=== PATIENT | female | born 1945 | race Caucasian/White ===

== ENCOUNTER → 2016-12-12 | Outpatient (CLI) | payer MEDICARE, OTHER ==
[~2016-12-12] MED LIST: ACTOS15 MG PO; ADVAIR 250/28 DISKU1 IH; ADVAIR IH; ALLEGRA180 MG PO; ALLEGRA60 M1 PO; ARICEPT10 MG PO; ASPIRIN 81M81 MG/TA2 PO; ASPIRIN E.C. 8181 MG PO; BISOPROLOL5 MG PO; BUPROBAN150 MG PO; BUPROPION HCL150 MG PO; CALCIUM + D 6001 TA1 PO; CALCIUM 600 W/V1 TAB PO; CALCIUM 600MG+D1 TAB PO; CARAFATE 1GM1 G PO; CLARITIN 1010 MG/TAB PO; CRESTOR10 MG PO; CYMBALTA 60MG60 MG PO; CYMBALTA30 MG PO; DESYREL 50MG50 MG PO; FAMOTIDINE40 MG PO; FISH OIL1 IU PO; FLONASE NASAL S16 GM NS; FLUTICAS P0.05 MG/AC NS; FORTAMET500 MG PO; GLIPIZIDE5 MG PO; GLUCOPHAGE1000 MG PO; IRON325 M2 PO; LEVOTHROID0.1 MG PO; LEVOTHROID0.112 MG PO; LIP PO; LIPITOR 40MG TA40 MG PO; LIPITOR80 MG PO; LOPRESSOR 225 MG/TAB PO; LUMIGAN 5 ML5 M1 OU; METFORMIN500 MG PO; METOPROLOL SUCC25 M1 PO; NATURE'S BLEN2000 IU PO; NITROSTAT0.4 MG SL; PEPCID 20MG TAB20 MG PO; PLAVIX 75MG TAB75 MG PO; PRAVASTATIN40 MG PO; RITE AID BIO2500 MCG PO; RT ADVAIR 228 DISKUS IH; SINGULAIR10 MG PO; ST. JOSEPH81 M2 PO; SUPER EPA 1201200 MG PO; SYNTHROID0.1 MG/TAB PO; TRAVATAN Z 2.52.5 ML OU; VASOTEC 2.2.5 MG/TAB PO; VITAMIN B11000 MCG/M IM; VITAMIN D31000 IU PO; VTAMINC250TA PO; ZOLPIDEM5 MG PO; ZYBAN150 MG PO; ZYRTEC10 MG PO
== END ==
LOC: MC.RAD 08:00
DX: Z12.31 Encounter for screening mammogram for malignant neoplasm of breast (principal); R92.1 Mammographic calcification found on diagnostic imaging of breast

== ENCOUNTER → 2016-12-26 | Outpatient (CLI) | payer MEDICARE, OTHER | LOC: COL.RAD 08:46 | PROVIDERS: Internal Medicine | DX: Z01.812 Encounter for preprocedural laboratory examination (principal); I71.4 Abdominal aortic aneurysm, without rupture; J84.10 Pulmonary fibrosis, unspecified; I25.10 Atherosclerotic heart disease of native coronary artery without angina pectoris; I51.7 Cardiomegaly | CPT/HCPCS: Q9967 ==

== ENCOUNTER → 2017-03-08 | Outpatient (CLI) | payer MEDICARE, OTHER | LOC: COL.RAD 07:45 | DX: S22.080A Wedge compression fracture of T11-T12 vertebra, initial encounter for closed fracture (principal) ==

== ENCOUNTER 2017-03-13 08:22 | Outpatient (CLI) | payer MEDICARE, OTHER ==
[~2017-03-13] VITALS: Ht 167.6 cm; Wt 81.0 kg
[2017-03-13] VITALS (8 sets, daily range): BP systolic 116–168; BP diastolic 71–102; PULSE 49–56; TEMP 96.7–97.9
[~2017-03-13 08:22] MED LIST changes: -CALCIUM 600MG+D1 TAB PO; -CYMBALTA 60MG60 MG PO; -DESYREL 50MG50 MG PO; -FLONASE NASAL S16 GM NS; -GLUCOPHAGE1000 MG PO; -IRON325 M2 PO; -NATURE'S BLEN2000 IU PO; -RT ADVAIR 228 DISKUS IH; -SYNTHROID0.1 MG/TAB PO; -TRAVATAN Z 2.52.5 ML OU; -VITAMIN B11000 MCG/M IM; -VTAMINC250TA PO
[2017-03-13] MEDS ORDERED: CALCIUM 600MG+D1 TAB PO (09:08)
[2017-03-13] MEDS ORDERED: VITAMIN B11000 MCG/M IM (09:10)
[2017-03-13] MEDS ORDERED: NATURE'S BLEN2000 IU PO (09:10)
[2017-03-13] MEDS ORDERED: CYMBALTA 60MG60 MG PO (09:12)
[2017-03-13] MEDS ORDERED: IRON325 M2 PO (09:13)
[2017-03-13] MEDS ORDERED: FLONASE NASAL S16 GM NS (09:14)
[2017-03-13] MEDS ORDERED: RT ADVAIR 228 DISKUS IH (09:15)
[2017-03-13] MEDS ORDERED: SYNTHROID0.1 MG/TAB PO (09:16)
[2017-03-13] MEDS ORDERED: GLUCOPHAGE1000 MG PO (09:19)
[2017-03-13] MEDS ORDERED: TRAVATAN Z 2.52.5 ML OU (09:23)
[2017-03-13] MEDS ORDERED: VTAMINC250TA PO (09:24)
[2017-03-13] MEDS ORDERED: DESYREL 50MG50 MG PO (09:24)
== END 2017-03-13 13:39 | disposition home or self-care (01) ==
LOC: COL.CAR 08:22
DX: S22.080A Wedge compression fracture of T11-T12 vertebra, initial encounter for closed fracture (principal); W17.89XA Other fall from one level to another, initial encounter; Y93.H2 Activity, gardening and landscaping; Y92.007 Garden or yard of unspecified non-institutional (private) residence as the place of occurrence of the external cause; I71.4 Abdominal aortic aneurysm, without rupture; E78.5 Hyperlipidemia, unspecified; E03.9 Hypothyroidism, unspecified; G47.30 Sleep apnea, unspecified; G30.9 Alzheimer's disease, unspecified; F02.80 Dementia in other diseases classified elsewhere, unspecified severity, without behavioral disturbance, psychotic disturbance, mood disturbance, and anxiety; I25.10 Atherosclerotic heart disease of native coronary artery without angina pectoris; E55.9 Vitamin D deficiency, unspecified; G25.81 Restless legs syndrome; I10 Essential (primary) hypertension; H40.9 Unspecified glaucoma; G62.9 Polyneuropathy, unspecified; E66.9 Obesity, unspecified; K21.9 Gastro-esophageal reflux disease without esophagitis; G47.00 Insomnia, unspecified; Z72.0 Tobacco use
CPT/HCPCS: C1713; J2250; J3010; J7120

== ENCOUNTER → 2018-01-08 | Outpatient (CLI) | payer MEDICARE, OTHER ==
[~2018-01-08] MED LIST changes: +CALCIUM 600MG+D1 TAB PO; +CYMBALTA 60MG60 MG PO; +DESYREL 50MG50 MG PO; +FLONASE NASAL S16 GM NS; +GLUCOPHAGE1000 MG PO; +IRON325 M2 PO; +NATURE'S BLEN2000 IU PO; +RT ADVAIR 228 DISKUS IH; +SINEMET 25/101 UDTAB PO; +SYNTHROID0.1 MG/TAB PO; +TOPAMAX 25MG25 M1 PO; +TRAVATAN Z 2.52.5 ML OU; +VITAMIN B11000 MCG/M IM; +VTAMINC250TA PO
== END ==
LOC: MC.RAD 12-14 13:40
DX: Z12.31 Encounter for screening mammogram for malignant neoplasm of breast (principal)

== ENCOUNTER → 2018-07-04 | Outpatient (CLI) | payer MEDICARE, OTHER | LOC: COL.RAD 09:30 | DX: D47.2 Monoclonal gammopathy (principal); M85.80 Other specified disorders of bone density and structure, unspecified site; Z96.89 Presence of other specified functional implants ==

== ENCOUNTER → 2019-01-15 | Outpatient (CLI) | payer MEDICARE, OTHER | LOC: MC.RAD 09:49 | DX: Z12.31 Encounter for screening mammogram for malignant neoplasm of breast (principal) ==

== ENCOUNTER 2019-12-18 11:32 | Emergency (ER) | payer MEDICARE, OTHER ==
[~2019-12-18] VITALS: Ht 317.5 cm; Wt 78.2 kg
[2019-12-18 11:39] VITALS: BP 143/86; TEMP 97.1
[2019-12-18] MEDS ORDERED: LIPITOR 40MG TA40 MG PO (12:13)
[2019-12-18] MEDS ORDERED: WELLBUTRIN SR150 M1 PO (12:14)
[2019-12-18] MEDS ORDERED: CYMBALTA 60MG60 MG PO (12:17)
[2019-12-18] MEDS ORDERED: NORCO 325 MG-51 TAB PO (12:19)
[2019-12-18] MEDS ORDERED: ATROVENTNS0.03% NS (12:20)
[2019-12-18] MEDS ORDERED: LUMIGAN 2.5 ML2.5 M1 OU (12:22)
[2019-12-18] MEDS ORDERED: MIRALAX PA17 GM/Dose PO (12:23)
[2019-12-18] MEDS ORDERED: REQUIP0.25 MG PO (12:23)
[2019-12-18] MEDS ORDERED: VITAMIN D250 MCG PO (12:26)
[2019-12-18] MEDS ORDERED: SANCTURA20 MG PO (12:26)
[2019-12-18 12:58] LABS: BASO % 0.2 % (0.0-2.0); EOS # 0.1 (0.0-0.7); EOS % 0.7 % (0-4.0); GRAN # 10.5 (1.4-6.5); GRAN % 83.1 % (42.2-75.2); LYMPH # 0.9 (1.2-3.4); LYMPH % 7.1 % (20.0-51.0); MEAN CELL VOLUME 101 fl (80.0-100.0); MEAN CORPUSCULAR HEMOGLOBIN 32 pg (27.0-31.0); MEAN CORPUSCULAR HGB CONC 32 g/dl (33.0-37.0); MEAN PLATELET VOLUME 10.2 fl (7.4-10.4); MONO # 1.1 (0.1-0.6); MONO % 8.7 % (1.7-9.3); PLATELET COUNT 217 K/mm3 (130-400); REDCELL DISTRIBUTION WIDTH-CV 14.5 % (11.5-14.5)
[2019-12-18 12:59] LABS: HEMATOCRIT 34.3 % (37.0-47.0)
[2019-12-18 13:10] LABS: ALANINE AMINOTRANSFERASE < 6 U/L (9-52); ALBUMIN 3.8 gm/dL (3.5-5.0); ALKALINE PHOSPHATASE 122 U/L (50-136); ANION GAP 8 mmol/L (7-16); AST,SGOT 15 U/L (15-37); BILIRUBIN,TOTAL 0.6 mg/dL (0.0-1.0); BLOOD UREA NITROGEN 14 mg/dL (7-17); CALCIUM 10.1 mg/dL (8.4-10.2); CARBON DIOXIDE 23 mmol/L (22-30); CHLORIDE 107 mmol/L (98-107); CREATININE, serum 0.96 (0.52-1.25); GLUCOSE 103 mg/dL (74-106); LIPASE 11 U/L (23-300); POTASSIUM 3.7 mmol/L (3.4-5.0); SODIUM 138 mmol/L (137-145); TOTAL PROTEIN 7.6 gm/dL (6.4-8.2)
[2019-12-18 14:20] LABS: COLLECTION METHOD CLEAN CATCH
[2019-12-18 14:28] LABS: PH 6 (5-8); URINE APPEARANCE Hazy; URINE BACTERIA None Seen /hpf; URINE BILIRUBIN Negative (NEGATIVE); URINE BLOOD Negative (NEGATIVE); URINE COLOR Yellow; URINE GLUCOSE Negative (NEGATIVE); URINE KETONE Negative (NEGATIVE); URINE LEUKOCYTE ESTERASE Negative (NEGATIVE); URINE NITRATE Negative (NEGATIVE); URINE PROTEIN(semi-quant) 2+ (NEGATIVE); URINE RBC 0-2 /hpf; URINE UROBILINOGEN Negative (NEGATIVE)
[2019-12-18] MEDS ORDERED: FLEXERIL 1010 MG/TAB PO (15:58)
[2019-12-18] MEDS ORDERED: PERCOCET 325 MG1 TA2 PO (15:58)
[2019-12-18 16:13] VITALS: PULSE 84
== END 2019-12-18 16:13 | disposition home or self-care (01) ==
LOC: COL.ER 11:32
PROVIDERS: Emergency Medicine
DX: M25.552 Pain in left hip (principal); I10 Essential (primary) hypertension; E78.00 Pure hypercholesterolemia, unspecified; J45.909 Unspecified asthma, uncomplicated; Z95.828 Presence of other vascular implants and grafts; Z79.82 Long term (current) use of aspirin; Z79.51 Long term (current) use of inhaled steroids; W01.0XXA Fall on same level from slipping, tripping and stumbling without subsequent striking against object, initial encounter; Y92.009 Unspecified place in unspecified non-institutional (private) residence as the place of occurrence of the external cause
CPT/HCPCS: J1170; Q9967

== ENCOUNTER 2020-02-14 16:19 | Inpatient (IN) | payer MEDICARE, OTHER ==
[~2020-02-14] VITALS: Ht 165.1 cm; Wt 97.4 kg
[~2020-02-14 16:19] MED LIST changes: +ATROVENTNS0.03% NS; +FLEXERIL 1010 MG/TAB PO; +LUMIGAN 2.5 ML2.5 M1 OU; +MIRALAX PA17 GM/Dose PO; +NORCO 325 MG-51 TAB PO; +PERCOCET 325 MG1 TA2 PO; +REQUIP0.25 MG PO; +SANCTURA20 MG PO; +VITAMIN D250 MCG PO; +WELLBUTRIN SR150 M1 PO
[2020-02-14 17:03] LABS: BASO % 0.5 % (0.0-2.0); EOS # 0.1 (0.0-0.7); EOS % 0.7 % (0-4.0); GRAN # 6.7 (1.4-6.5); HEMOGLOBIN 11.5 g/dl (12.5-16.0); LYMPH # 0.7 (1.2-3.4); MEAN CELL VOLUME 104 fl (80.0-100.0); MEAN CORPUSCULAR HEMOGLOBIN 34 pg (27.0-31.0); MEAN CORPUSCULAR HGB CONC 32 g/dl (33.0-37.0); MEAN PLATELET VOLUME 10.4 fl (7.4-10.4); MONO # 0.6 (0.1-0.6); MONO % 7.4 % (1.7-9.3); PLATELET COUNT 251 K/mm3 (130-400); RED BLOOD COUNT 3.43 M/mm3 (4.10-5.30); REDCELL DISTRIBUTION WIDTH-CV 15.9 % (11.5-14.5)
[2020-02-14 17:05] LABS: HEMATOCRIT 35.6 % (37.0-47.0)
[2020-02-14 17:25] LABS: ALANINE AMINOTRANSFERASE 6 U/L (4-34); ALBUMIN 4.1 gm/dL (3.5-5.0); ALKALINE PHOSPHATASE 139 U/L (50-136); ANION GAP 12 mmol/L (7-16); AST,SGOT 31 U/L (15-37); BILIRUBIN,TOTAL 0.9 mg/dL (0.0-1.0); BLOOD UREA NITROGEN 23 mg/dL (7-17); C-REACTIVE PROTEIN 2.6 mg/dL (0.0-0.9); CALCIUM 10.5 mg/dL (8.4-10.2); CARBON DIOXIDE 27 mmol/L (22-30); CHLORIDE 100 mmol/L (98-107); CREATININE, serum 1.03 (0.52-1.25); GLUCOSE 87 mg/dL (74-106); POTASSIUM 3.1 mmol/L (3.4-5.0); SODIUM 139 mmol/L (137-145); TOTAL PROTEIN 7.9 gm/dL (6.4-8.2)
[2020-02-14 17:26] VITALS: BP 155/97; PULSE 77
[2020-02-14 17:34] LABS: TROPONIN-I < 0.012 ng/mL (0.000-0.035)
[2020-02-14 17:41] LABS: COLLECTION METHOD CATHETER
[2020-02-14 17:58] LABS: PH 5 (5-8); SQUAMOUS EPITHELIAL 0-2 /hpf; URINE APPEARANCE Clear; URINE BACTERIA None Seen /hpf; URINE BILIRUBIN Negative (NEGATIVE); URINE BLOOD Negative (NEGATIVE); URINE COLOR Yellow; URINE GLUCOSE Negative (NEGATIVE); URINE KETONE Trace (NEGATIVE); URINE LEUKOCYTE ESTERASE Negative (NEGATIVE); URINE NITRATE Negative (NEGATIVE); URINE PROTEIN(semi-quant) Negative (NEGATIVE); URINE RBC 0-2 /hpf; URINE UROBILINOGEN Negative (NEGATIVE)
--- NOTE | 2020-02-14 20:00 | NUR ---
Pt report received from ED per Peggy FERREIRA. Pt is being brought to the unit for admission secondary to recent and multiple falls and her reporting that Pt is "acting funny". Will perform assessment when Pt is transferred to unit.
[2020-02-14] MEDS ORDERED: MASON NATURAL2000 IU PO (20:37)
[2020-02-14] MEDS ORDERED: PLAVIX 75MG TAB75 MG PO (20:38)
[2020-02-14 20:40] VITALS: BP 144/87; PULSE 83; TEMP 98.2
[2020-02-14] MEDS ORDERED: ZOFRAN 4MG T4 MG/TAB PO (20:42)
[2020-02-14 22:40] LABS: ANION GAP 10 mmol/L (7-16); BLOOD UREA NITROGEN 20 mg/dL (7-17); CALCIUM 9.7 mg/dL (8.4-10.2); CARBON DIOXIDE 26 mmol/L (22-30); CHLORIDE 104 mmol/L (98-107); CREATININE, serum 0.83 (0.52-1.25); GLUCOSE 76 mg/dL (74-106); MAGNESIUM 1.6 mg/dL (1.6-2.3); POTASSIUM 3.3 mmol/L (3.4-5.0); SODIUM 140 mmol/L (137-145)
[2020-02-14 22:58] LABS: TROPONIN-I 3 HR POST INITIAL < 0.012 ng/mL (0.000-0.034)
[2020-02-14 23:40] VITALS: BP 146/80; PULSE 76; TEMP 97.8
[2020-02-15] VITALS (9 sets, daily range): BP systolic 110–169; BP diastolic 79–118; PULSE 67–79; TEMP 97.3–98.1
[2020-02-15 06:37] LABS: BASO % 0.3 % (0.0-2.0); EOS # 0.1 (0.0-0.7); GRAN # 4.6 (1.4-6.5); LYMPH # 1.1 (1.2-3.4); LYMPH % 17.2 % (20.0-51.0); MEAN CELL VOLUME 104 fl (80.0-100.0); MEAN CORPUSCULAR HGB CONC 32 g/dl (33.0-37.0); MEAN PLATELET VOLUME 10.5 fl (7.4-10.4); MONO # 0.5 (0.1-0.6); PLATELET COUNT 222 K/mm3 (130-400); RED BLOOD COUNT 2.94 M/mm3 (4.10-5.30)
[2020-02-15 06:50] LABS: HEMATOCRIT 30.7 % (37.0-47.0); HEMOGLOBIN 9.8 g/dl (12.5-16.0); MEAN CORPUSCULAR HEMOGLOBIN 33 pg (27.0-31.0)
--- NOTE | 2020-02-15 06:54 | NUR ---
Pt report given to Radha FERREIRA. Pt resting in bed peacefully at this time with no s/s of distress noted.
--- NOTE | 2020-02-15 06:56 | NUR ---
Pt has had a peacefull night resting in bed alternating between resting with eyes open and closed. Pt has not wanted to watch tv during this shift and has been compliant with using the call light to notify staff of her wants and needs. Pt has had back pain throughout the shift and an order was obtained from Lacy CORDOBA for APAP 650mg which had minimal results for Pt. Pt is unable to stand secondary to weakness to all extremities which is more pronounced in her BLE to the point that during neuro checks Pt was unable to lift her feet off the bed but was able to move them on the bed. 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 Pt is A&Ox4 and reports that she also suffers from Parkinson's disease and that she is "forgetfull". Pt has remained in a pleasant mood during this shift with no s/s of distress noted. Pt has started coughing up watery sputum during the shift and is noted to have about half a dozen tissues that she has used. Pt stated that she was unable to provide a med reconcialiation and it was reported to this typewriter assembler by Catie FERREIRA that Lacy CORDOBA had contacted Pt's spouse for med list and performed reconciliation. Pt is able to move about in bed and perform minor adjustments but requires assistance for turning or moving up higher in the bed. While using the bedpan typewriter assembler is able to lift her buttocks and thighs up off the bed but not enough to fully clear the bedpan without pushing the bedpan down into the mattress.
--- NOTE | 2020-02-15 10:37 | NUR ---
Pt assessment complete. Pt is laying in bed upon entry, she is A/O x4, but is forgetful. She denies any pain. Breathing is even and unlabored on RA. Pt denies SOB. Per PT patient unable to sit at side of bed d/t weakness. Neuro checks intact. Pt took pills without issues. Pt requesting to be put on bedpan. No further needs at this time.
--- NOTE | 2020-02-15 13:32 | NUR ---
SW met with patient at her bedside for assessment. Pt indicated that she lives in [facility] with her Preston (phone number [phone]) who is care support and her DPOa. Pt reports that she utilizes a walker(4-wheeled per previous notes), and that she utilizes a CPAP. Pt reports that her PCP is Dr. Mahan, and she does have an upcoming appointment, although she was not sure when PT indicated that she gets her medications from [facility] with no concerns. Pt expressed an interest in continued PT, which she is currently receiving while inpatient. However, Pt declined HHS at this time. SW corresponded with Pt's nurse who reports continued monitoring to determine discharge care needed. SW will continue to follow.
--- NOTE | 2020-02-15 19:00 | NUR ---
Pt report received at bedside from Radha FERREIRA. Pt is lying in bed with no s/s of distress noted at this time and call light within reach. Will continue to monitor.
--- NOTE | 2020-02-15 19:08 | NUR ---
Pt became more confused and anxious this afternoon. Reports she was told this could happen with parkinson's. She reports she is not used to not being with her and son and wants to go home. She is worried we are trying to "send her somewhere". Son and updated. Necessity to stay discussed with patient who verbalizes understanding but still is appears anxious. Talking with son at this time.
--- NOTE | 2020-02-15 22:00 | NUR ---
Pt has had increased confusion this shift and while performning rounds has been noted by this teletypewriter operator to have removed her clothes and sitting on the bed naked. Pt stated that she was looking for her clothes so she could leave. Pt states that "the Dr" told her that she would be able to go home today and "they" won't let her leave now. This teletypewriter operator spoke to Pt about upcoming tests and the need to remain in the hospital at this time so that she can get well enough to return home to her spouse. Pt is tearful and this teletypewriter operator provides therapeutic speech, listening, and touch. At the end of the encounter Pt is resting in bed no longer crying but still sad. No s/s of distress noted. Will continue to monitor.
[2020-02-16] VITALS (7 sets, daily range): BP systolic 104–174; BP diastolic 67–94; PULSE 70–82; TEMP 97.8–99
--- NOTE | 2020-02-16 00:37 | NUR ---
This lyric writer notified Lacy CORDOBA that Pt has begun to have audible and visual hallucinations and has been noted to look at the wall and talk to her , has been noted by Catie FERREIRA to be talking "to those kids", and trying to reach down to the floor to catch that mouse (and points to the floor to direct this lyric writer to look to where she sees the mouse). Pt has had episodes of urinary incontinence without using call light (she previously has been consistent with using call light). Will continue to monitor.
--- NOTE | 2020-02-16 04:38 | NUR ---
Pt has continued to have increased confusion and some agitation with concerns expressed about where her spouse is. Pt is currently resting peacefully in bed with the room door open per her request. Will continue to monitor. Call light within reach and IV fluids infusiing without complications.
--- NOTE | 2020-02-16 07:23 | NUR ---
Pt report given to Sly FERREIRA
[2020-02-16 09:00] LABS: BASO % 0.4 % (0.0-2.0); EOS # 0.2 (0.0-0.7); EOS % 1.9 % (0-4.0); GRAN # 6.7 (1.4-6.5); HEMOGLOBIN 10.4 g/dl (12.5-16.0); LYMPH # 0.9 (1.2-3.4); LYMPH % 10.3 % (20.0-51.0); MEAN CELL VOLUME 104 fl (80.0-100.0); MEAN CORPUSCULAR HEMOGLOBIN 34 pg (27.0-31.0); MEAN CORPUSCULAR HGB CONC 32 g/dl (33.0-37.0); MEAN PLATELET VOLUME 10.3 fl (7.4-10.4); MONO # 0.6 (0.1-0.6); MONO % 6.8 % (1.7-9.3); PLATELET COUNT 238 K/mm3 (130-400); REDCELL DISTRIBUTION WIDTH-CV 16.2 % (11.5-14.5)
[2020-02-16 09:04] LABS: HEMATOCRIT 32.1 % (37.0-47.0)
[2020-02-16 09:19] LABS: CREATININE, serum 0.7 (0.52-1.25); MAGNESIUM 1.6 mg/dL (1.6-2.3); POTASSIUM 3.1 mmol/L (3.4-5.0)
--- NOTE | 2020-02-16 10:05 | NUR ---
Assessment completed, patient is alert/ and oriented to Person/place/time however she still seems disoriented/ confused at other times, on assessment I observe a generalized/ global weakness, no unilateral deficits noted, patient is noted to continue to have significant orthostatic drops in her blood pressure / is aware and asked that we do frequent lowering/raising of head of bed to try and help recondition her body to regulate blood pressure during position changes, heart RRR/distal pulses are palpable, lungs CTA/ no resp.difficulty noted
--- NOTE | 2020-02-16 13:25 | NUR ---
SW spoke with provider about Pt and he recommended IPR. SW indicated that she would coordinate with weekday SW for referral.
--- NOTE | 2020-02-16 20:30 | NUR ---
Initial shift assessment done- drowsy,,,was given Haldol a couple hours ago--refusing to eat,,did take most of her meds crushed in pudding , does not want to be bothered--confused to time, place and situation. Bed alarm on.
[2020-02-17 04:29] VITALS: BP 157/96; PULSE 82; TEMP 98.6
--- NOTE | 2020-02-17 05:47 | NUR ---
Did sleep most of the night- was confused, did not want to be bothered-repositioned,, incontinent of urine x3 this shift- no SOB noted, VSS
[2020-02-17 07:44] VITALS: BP 135/93; PULSE 82; TEMP 99
--- NOTE | 2020-02-17 09:00 | NUR ---
Assessment complete. Pt resting in bed, alert, partially oriented. Pt upset and tearful about staying here, states, "I don't want anymore needles, that's how you're going to get me, please don't do anymore. I've been here six days and I want to go home." Pt also refusing medications at this time, agrees to take them later today. No further needs reported. Call light in reach. Bed alarm on.
[2020-02-17 11:56] VITALS: BP 153/96; PULSE 76; TEMP 98.1
--- NOTE | 2020-02-17 14:21 | NUR ---
Photograph Mounter reviewed PT note which advised patient likely not able to tolerate 3 hours of therapy per day at [facility]. SW contacted patient to discuss SNF options and she states she wants to talk with her , Preston first but is tentatively agreeable to SNF at this time. SW followed up with Preston after he was able to talk with patient. DANIEL read Patient Preference Form to Preston who advised patient's first preference is [facility], second preference is [facility], and third preference is [facility]. DANIEL contacted [facility] who advised they are full at this time but would review referral in case bed availability changes. DANIEL faxed referral. DANIEL contacted Berlin at [facility] and Waleska at [facility] then faxed referrals. SW to continue to follow.
--- NOTE | 2020-02-17 14:44 | NUR ---
Group Insurance Specialist was contacted by Berlin at [facility] who inquired about a psych consult for patient. SW spoke with MESSI Robb who reports neurology has been consulted and psych will not be available until 02/24/20. SW to continue to follow.
[2020-02-17 15:52] VITALS: BP 138/78; PULSE 114; TEMP 100.4; TEMP 99.4
--- NOTE | 2020-02-17 16:39 | NUR ---
Pt with increased tremors in upper extremities and fidgeting. BP checked manually, 138/78. Temp 100.4 degrees F axillary. Pt talking about bicycles in the room that are not there and asking this nurse to check how much wood she has stacked. Provider notified. Orders received.
[2020-02-17 18:01] LABS: HEMOGLOBIN 11.8 g/dl (12.5-16.0); MEAN CELL VOLUME 103 fl (80.0-100.0); MEAN CORPUSCULAR HEMOGLOBIN 34 pg (27.0-31.0); MEAN CORPUSCULAR HGB CONC 33 g/dl (33.0-37.0); MEAN PLATELET VOLUME 10.4 fl (7.4-10.4); PLATELET COUNT 240 K/mm3 (130-400); RED BLOOD COUNT 3.52 M/mm3 (4.10-5.30); REDCELL DISTRIBUTION WIDTH-CV 16.4 % (11.5-14.5)
[2020-02-17 18:07] LABS: HEMATOCRIT 36.1 % (37.0-47.0)
[2020-02-17 18:30] LABS: ANISOCYTOSIS 2+; BAND 11 % (0-10); LYMPHOCYTE 2 % (20.0-51.0); NEUTROPHILS 85 % (42.0-75.2); PLATELET ESTIMATE NORMAL (NORMAL); POLYCHROMASIA 1+
--- NOTE | 2020-02-17 18:30 | NUR ---
Pt boosted up in bed and sat up high, very drowsy, not staying awake without stimuli. Pt finally does waken enough to swallow sched medications. Call light in reach. Bed alarm on.
[2020-02-17 19:32] LABS: CALCIUM 9.9 mg/dL (8.4-10.2); CREATININE, serum 0.96 (0.52-1.25); POTASSIUM 3.2 mmol/L (3.4-5.0)
[2020-02-17 19:55] VITALS: BP 91/59; PULSE 88; TEMP 98.2
--- NOTE | 2020-02-17 20:30 | NUR ---
Initial shift assessment done- very drowsy, will open eyes when name called- does say a few words- confused,,wants to go right back to sleep-- does follow simple commands-- did take her meds with sips of water with much encouragement-- Potassium level did come back low at 3.2,,will follow protocol w/IV potassium tonight- recheck in the am. Will be NPo after MN for LP. Bed alarm on- close to nursing station.
[2020-02-18] VITALS (14 sets, daily range): BP systolic 109–143; BP diastolic 63–93; PULSE 72–189; TEMP 97.5–98.9
--- NOTE | 2020-02-18 05:41 | NUR ---
Quiet night- more alert/oriented throughout the night- was given Tylenol for right arm sore{was given Potassium IV during the night} refused to have restarted--iv patent, no infiltration/redness
--- NOTE | 2020-02-18 08:30 | NUR ---
PT'S , [facility], WAS CALLED AND VERBAL CONSENT FOR A LP WAS GIVEN, VERIFIED BY JHON MIGUEL.
[2020-02-18 09:06] LABS: HEMOGLOBIN 11.2 g/dl (12.5-16.0); MEAN CELL VOLUME 102 fl (80.0-100.0); MEAN CORPUSCULAR HEMOGLOBIN 34 pg (27.0-31.0); MEAN CORPUSCULAR HGB CONC 33 g/dl (33.0-37.0); MEAN PLATELET VOLUME 10.6 fl (7.4-10.4); PLATELET COUNT 219 K/mm3 (130-400); RED BLOOD COUNT 3.27 M/mm3 (4.10-5.30); REDCELL DISTRIBUTION WIDTH-CV 16.6 % (11.5-14.5)
[2020-02-18 09:13] LABS: ALBUMIN 3.4 gm/dL (3.5-5.0); BILIRUBIN,TOTAL 1.2 mg/dL (0.0-1.0); CREATININE, serum 1.28 (0.52-1.25); MAGNESIUM 1.6 mg/dL (1.6-2.3); POTASSIUM 4.1 mmol/L (3.4-5.0); TOTAL PROTEIN 6.8 gm/dL (6.4-8.2)
[2020-02-18 09:14] LABS: HEMATOCRIT 33.5 % (37.0-47.0)
[2020-02-18 09:19] LABS: BAND 21 % (0-10); LYMPHOCYTE 2 % (20.0-51.0); NEUTROPHILS 76 % (42.0-75.2); PLATELET ESTIMATE NORMAL (NORMAL)
--- NOTE | 2020-02-18 09:30 | NUR ---
PT IN BED, UPSET BECAUSE SHE DIDN'T KNOW THE LP WAS OCCURING, EXPLAINED WHY IT WAS NEEDED, GAVE MEDICATIONS, PT SEEMED ANXIOUS AND TEARFUL, PT ORIENTED BUT EMOTIONALLY LABILE, NO OTHER NEEDS AT THIS TIME.
--- NOTE | 2020-02-18 09:56 | NUR ---
DR. WINN NOTIFIED OF WBC COUNT.
--- NOTE | 2020-02-18 09:57 | NUR ---
Vancomycin Initial Dosing Pharmacy Note Ordering provider: MD Candi Indication/duration: EMPIRIC LABS: WBC 20.9, SCr 1.3, CrCl ~40 Recommendation: vancomycin 17 mg/kg Maintenance dose: 1.5 grams every 24 hours Trough goal: 15-20 ug/mL. trough / @ 1100
--- NOTE | 2020-02-18 10:33 | NUR ---
PT RETURNED TO FLOOR AND VITALS CART IN ROOM FOR POST OP VITALS.
[2020-02-18 11:00] LABS: CSF APPEARANCE CLEAR; CSF COLOR COLORLESS; CSF RBC 0 /mm3 (0-0)
[2020-02-18 11:04] LABS: GLUCOSE,CSF 52 mg/dL (40-70)
[2020-02-18 11:09] LABS: CSF MONONUCLEAR 100 % (70-100); CSF POLYMORPHONUCLEAR 0 % (0-6)
--- NOTE | 2020-02-18 11:19 | NUR ---
PT BEING TAKEN OUT WITH VIA WHEELCHAIR WITH [facility] EMPLOYEE WITH PT BELONGINGS.
[2020-02-18 11:58] LABS: TOTAL PROTEIN,CSF 65 mg/dL (15-45)
--- NOTE | 2020-02-18 14:36 | NUR ---
Qm Nurse was notified by Waleska at [facility] that they can accept referral. DANIEL faxed updates to Waleska at [facility] and to Berlin at [facility]. Berlin continues to screen referral. DANIEL spoke with Tanvi, [facility] Director who advised she is still following referral at this time. DANIEL contacted patient's , Preston to provide update. SW to continue to follow.
--- NOTE | 2020-02-18 16:01 | NUR ---
[facility], [facility] at [facility], and [facility] are not able to accept patient's referral at this time. [facility], [facility], and [facility] continue to screen referrals. DANIEL spoke with RN, Rossi about patient's behaviors as SNFs have reported concerns listed in referral for non compliance and hallucinations. Rossi reports she has had patient for last two days and has not had any issues. DANIEL contacted patient's daughter, Paul who reports if the three SNFs still screening referral cannot accept, they will take patient home with home health and private duty services. Paul inquired about progress towards obtaining a bipap. DANIEL contacted Dr. Og's office and left a message. SW to continue to follow.
--- NOTE | 2020-02-18 17:36 | NUR ---
PT IN BED, USED BED VIERA, CLEANED UP PT AND CHANGED SHEETS, TURNED DOWN TEMP IN ROOM PER PT REQUEST, OVERALL UNEVENTFUL SHIFT, GAVE MEDICAL UPDATES TO PT AND PT DAUGHTER IN LAW. NO OTHER NEEDS AT THIS TIME. REQUESTS DESIRE FOR DISCHARGE.
--- NOTE | 2020-02-18 21:47 | NUR ---
Pt doing ok. Alert and oriented with VSS. Heart and lung sounds normal. Bowel sounds aud all quad. Uses bed pain, incontinent. HAs not had BM, given prn miralax. Pedal pulses present. Denies pain or other issues. Call light within reach, will continue to monitor
[2020-02-19 04:26] VITALS: BP 138/81; PULSE 94; TEMP 99.5
--- NOTE | 2020-02-19 04:51 | NUR ---
Pt has done ok through night, has not slept much. Incontinent of urine x3. Running low grade fever this AM, prn tylenol given. Call light within reach, will continue to monitor
[2020-02-19 06:49] LABS: MEAN CELL VOLUME 104 fl (80.0-100.0); MEAN CORPUSCULAR HGB CONC 33 g/dl (33.0-37.0); MEAN PLATELET VOLUME 11.1 fl (7.4-10.4); PLATELET COUNT 180 K/mm3 (130-400); RED BLOOD COUNT 2.83 M/mm3 (4.10-5.30); REDCELL DISTRIBUTION WIDTH-CV 16.4 % (11.5-14.5)
[2020-02-19 06:55] LABS: HEMATOCRIT 29.4 % (37.0-47.0); HEMOGLOBIN 9.6 g/dl (12.5-16.0); MEAN CORPUSCULAR HEMOGLOBIN 34 pg (27.0-31.0)
[2020-02-19 07:26] LABS: CALCIUM 9.2 mg/dL (8.4-10.2); CREATININE, serum 0.94 (0.52-1.25); MAGNESIUM 2.2 mg/dL (1.6-2.3); POTASSIUM 3.6 mmol/L (3.4-5.0)
[2020-02-19 07:30] VITALS: BP 118/62; PULSE 88; TEMP 98.2
[2020-02-19 08:27] LABS: ANISOCYTOSIS 1+; BAND 11 % (0-10); LYMPHOCYTE 2 % (20.0-51.0); NEUTROPHILS 84 % (42.0-75.2); PLATELET ESTIMATE NORMAL (NORMAL)
[2020-02-19 12:23] VITALS: BP 108/78; PULSE 87; TEMP 98
[2020-02-19 16:14] VITALS: BP 139/118; PULSE 92; TEMP 97.9
--- NOTE | 2020-02-19 16:28 | NUR ---
Patient is alert but mildly confuse. UA is need from patient. patient have soem tearful episode this morning. 2-1 assist to stand or ambulate. patient was not able to bear any weight on her legs during transfer from her bed to the chair.
--- NOTE | 2020-02-19 19:15 | NUR ---
PT REPORT RECEIVED FROM PRESTON FERREIRA. PT REMAINS CONFUSED AND EXPERIENCING AUDITORY AND VISUAL HALLUCINATIONS. PT IS RESTING IN BED PEACEFULLY AT THIS TIME. WHEN THIS MARBELLA AND PRESTON ENTERED ROOM PT APPEARED TO BE LOOKING TO HER RIGHT AND QUIETLY COMMUNICATING WITH SOMEONE THAT WAS NOT PRESENT. PT HAS CALL LIGHT AT HER SIDE AND NO S/S OF DISTRESS NOTED. WILL CONTINUE TO MONITOR.
[2020-02-19 19:37] VITALS: BP 151/86; PULSE 93; TEMP 98.4
--- NOTE | 2020-02-19 19:39 | NUR ---
PATIENT IS ALERT BUT CONFUSED WITH HALLUCINATION. PATIENT ABLE TO FEED HERSELF. I SAW PATIENT LAYING ON THE FLOOR THIS EVENING AFTER GIVEN REPORT TO NIGHT NURSE. BED ALARM WAS NOT ON. NO SKIN TEAR FOUND ON PATIENT. PATIENT IS RESTING IN BED AT THE MOMENT. REPORT GIVEN TO NIGHT NURSE JHON YATES.
--- NOTE | 2020-02-19 19:45 | NUR ---
As this writer editor finished receiving report on the shift's patients/caseload this writer editor and Sonya RN were returning back to the nurses station when Sonya RN stated "she's on the floor!" This writer editor and Sonya RN immediately entered Pt's room and assessed the situation. Kena RN (charge nurse) notified and assisted in getting patient back into bed. This writer editor noted that bed alarm was not sounding and upon looking at the alarm noted that it was not active. While attempting to active bed alarm (after returning Pt to bed) it was noted that the alarm would begin to sound momentarily after each time it was set. This writer editor made numerous attempts to get the alarm to set without immediatwely triggering and was able to do so. Pt is noted to have multiple bruises on her BUE consistent with IV start attempts. Pt reports that her back hurts (which is a chronic condition for Pt) and there are no other s/s of injury at this time except for a small bruise this writer editor did not previously note while caring for Pt earlier this week that is located on Pt's lateral posterior left hip. Will continue to monitor.
--- NOTE | 2020-02-19 22:46 | NUR ---
Pt remains resting in bed peacefully with this magnetic tape typewriter operator noting that she manipulated her fingers and empty hands as if she is performing some unseen task as well as continuing to have conversations with her non-present spouse and other unseen persons. Pt remains generally A&Ox3 but due to the persisitent confusion and hallucinations this magnetic tape typewriter operator graded her as "confused" on the nuero checks performed so far this shift. No s/s of distress noted. EMBROIDERY SUPERVISOR notified of need for 3 occult stool collections as well as the need to assist this magnetic tape typewriter operator later during the shift to collect a straight cath UA. Will continue to monitor.
[2020-02-20 00:10] VITALS: BP 128/84; PULSE 85; TEMP 98.8
--- NOTE | 2020-02-20 00:20 | NUR ---
Pt was noted to be trying to get out of bed and triggered bed alarm. This hand sign writer noted that bedding is very wet with urine as is Pt's brief and Pt yellow gown is noted to be wet also. Complete bed change performed, brief changed, saul-care performed, and new gown placed on Pt. Pt repositioned up higher in bed and bed alarm reset. Pt remains confused and is disoriented to place, time, and situation. Pt is unable to state where she is at (town and particular place) and states that she is in [place] and is "checking out" and going back home tomorrow. No s/s of distress noted. Will continue to monitor.
--- NOTE | 2020-02-20 02:38 | NUR ---
Pt noted to be resting in bed with eyes closed and no s/s of distress noted. Pt opened eyes when this inspector automatic typewriter attempted to reposition IV line. Will continue to monitor.
--- NOTE | 2020-02-20 03:00 | NUR ---
This service writer advisor collected straight cath UA from Pt using sterile technique with Pt tolerating well.
[2020-02-20 03:15] LABS: COLLECTION METHOD CATHETER
[2020-02-20 03:22] LABS: MUCOUS Present /lpf; PH 6 (5-8); SQUAMOUS EPITHELIAL 0-2 /hpf; URINE APPEARANCE Clear; URINE BACTERIA None Seen /hpf; URINE BILIRUBIN Negative (NEGATIVE); URINE BLOOD 1+ (NEGATIVE); URINE COLOR Yellow; URINE GLUCOSE Negative (NEGATIVE); URINE KETONE 1+ (NEGATIVE); URINE LEUKOCYTE ESTERASE Negative (NEGATIVE); URINE NITRATE Negative (NEGATIVE); URINE PROTEIN(semi-quant) 1+ (NEGATIVE)
--- NOTE | 2020-02-20 03:40 | NUR ---
Pt has had a total of 3 incontinent voids noted this shift.
[2020-02-20 04:01] VITALS: BP 144/79; PULSE 83; TEMP 98.7
--- NOTE | 2020-02-20 04:04 | NUR ---
Pt is alert to self and that she is in the hospital at "[facility] [place]" but states that she is in [facility]. When redirected that she is actually in [facility] she responds "oh so you moved me". Pt denies pain at this time and is resting peacefully in bed with tv on. Pt is noted to periodically make hand and arm movements consistent with waving as well as manipulating objects that only Pt can see. Pt is also still noted to periodically appear as if she is talking with someone who is not there. Will continue to monitor.
--- NOTE | 2020-02-20 05:54 | NUR ---
Pt is resting in bed at this time with eyes open and remains confused with hallucinations persisting. Pt took AM meds but had to be redirected to keep them in her mouth as she tried to remove the med with her hand after this magnetic tape typewriter operator placed it in her mouth. Will continue to monitor.
--- NOTE | 2020-02-20 06:59 | NUR ---
Pt report given to Juanjo FERREIRA at bedside.
[2020-02-20 07:02] VITALS: BP 149/89; PULSE 82; TEMP 98.5
[2020-02-20] MEDS ORDERED: MAG-OX 400400 MG/TAB PO (08:32)
[2020-02-20] MEDS ORDERED: FOLIC ACID 11 MG/TA1 PO (08:32)
[2020-02-20] MEDS ORDERED: MIRALAX510G PO (08:33)
[2020-02-20] MEDS ORDERED: TYLENOL 325MG325 MG PO (08:34)
[2020-02-20] MEDS ORDERED: SENNA-LAX8.6 MG PO (08:34)
[2020-02-20] MEDS ORDERED: PROAMATINE2.5 MG PO ×2 (08:35→10:29)
--- NOTE | 2020-02-20 09:06 | NUR ---
Pt awake upon entry this mornring, shows some confusion, attempted to give morning medications with applesauce this morning, she did take most before refusing, shift assessment complete, left Pt call light in reach, bed in lowest position, alarm on.
[2020-02-20] MEDS ORDERED: OMNICEF 300MG300 MG PO (10:29)
[2020-02-20] MEDS ORDERED: K-TAB20 PO (10:30)
[2020-02-20 11:34] VITALS: BP 177/106; PULSE 82; TEMP 98.2
--- NOTE | 2020-02-20 13:36 | NUR ---
[facility] not able to accept referral at this time. DANIEL spoke with MESSI Robb who advised patient ready for discharge today to [facility]. DANIEL contacted patient's Preston who expressed frustration with lack of communication from hospital and that he does not want patient to go to SNF. Preston states he intends to take patient home today. DANIEL contacted MESSI Robb who advised she would have Hospitalist call patient's . DANIEL spoke with Hospitalist who advised Preston is insistent that patient is going home today, not to SNF. Hospitalist advised that he had discussion with Preston about 30 day window and that if things do not go well home patient will need to direct admit to SNF, not return to the Emergency Room. Hospitalist also advised patient is open to Home Health services. DANIEL contacted Preston again to discuss HH services. Preston selected [facility] and states that if things don't go well, [facility] can coordinate with [facility] about possible admission. DANIEL advised Preston that HH services are intermittent and that he will be primarily responsible for patient care. Preston verbalized understanding. DANIEL faxed referral to [facility] and was advised by Larisa that they can accept referral. DANIEL provided update to Preston then collaborated with JHON Geiger to arrange for a time for Preston to fruit or nut picker patient. DANIEL contacted Waleska at [facility] to provide update. Waleska advised she can collaborate with [facility] to monitor for any additional needs. DANIEL also contacted DANIEL Berkowitz at [facility] (patient's primary care provider) to update on patient discharge. No additional needs identified at this time.
--- NOTE | 2020-02-20 14:21 | NUR ---
Pt discharged to home, escorted via WC to entrance, assisted into vehicle, discussed discharge packet with (DPOA), Pt left with spouse via private transportation.
--- NOTE | 2020-02-20 16:59 | NUR ---
Rag Sorter was contacted by patient's Preston who does not think he can manage patient at home. DANIEL contacted Waleska at [facility] who advised based on last night's clinical updates, they could not accept. DANIEL contacted Preston and advised [facility] has accepted and Preston reports their first visit is scheduled for tomorrow. Preston states his son and daughter in law from [place] are on their way to provide additional support this evening. Preston agreeable to having referrals sent to area SNFs. SW to sent referrals in the morning.
--- NOTE | 2020-02-21 11:47 | NUR ---
Supplier Quality Specialist has faxed referrals to [facility], [facility], [facility], and [facility]. [facility] and [facility] cannot accept referral at this time. SW to continue to follow.
--- NOTE | 2020-02-21 11:53 | NUR ---
Sales Solutions Associate faxed referral to [facility]
[2020-02-21 14:24] LABS: HSV 2 DNA PCR QUAL Not Detected (())
--- NOTE | 2020-02-21 16:25 | NUR ---
Bernie at [facility] advised the earliest they would have an answer is Monday. DANIEL spoke with Norberto of [facility] who advised they would likely be able to accept referral but admit would be Monday. DANIEL spoke with [facility] who are still running patient's insurance but report they would likely be able to accept but could not admit until Monday. DANIEL contacted patient's Preston who states his son is there and they can manage through the weekend. DANIEL followed up with [facility] again and advised they would be in contact with Preston this evening with a final answer. DANIEL provided update to Larisa at [facility]. DANIEL to continue to follow.
--- NOTE | 2020-02-24 10:03 | NUR ---
Windows Admin received a message from Lynette at [facility] that advised patient to admit to their facility on Monday morning.
== END 2020-02-20 14:23 | DRG 312 ==
LOC: COL.ER 16:19 → MEDICAL 18:15
PROVIDERS: Emergency Medicine; Internal Medicine; Nurse Practitioner Family; Physician Assistant; Psychiatry & Neurology Neurology; ADMIT Hospitalist
PROC: 009U3ZX Drainage of Spinal Canal, Percutaneous Approach, Diagnostic (ICD-10-PCS; principal; 2020-02-18)
PROC: B01B1ZZ Fluoroscopy of Spinal Cord using Low Osmolar Contrast (ICD-10-PCS; 2020-02-18)
DX: I95.1 Orthostatic hypotension (principal); E43 Unspecified severe protein-calorie malnutrition; N39.0 Urinary tract infection, site not specified; N17.9 Acute kidney failure, unspecified; E78.5 Hyperlipidemia, unspecified; I10 Essential (primary) hypertension; I25.10 Atherosclerotic heart disease of native coronary artery without angina pectoris; G31.83 Neurocognitive disorder with Lewy bodies; F02.80 Dementia in other diseases classified elsewhere, unspecified severity, without behavioral disturbance, psychotic disturbance, mood disturbance, and anxiety; E03.9 Hypothyroidism, unspecified; Z87.891 Personal history of nicotine dependence; Z88.0 Allergy status to penicillin; Z91.030 Bee allergy status; N31.9 Neuromuscular dysfunction of bladder, unspecified; H40.9 Unspecified glaucoma; G43.909 Migraine, unspecified, not intractable, without status migrainosus; Z91.81 History of falling; R53.81 Other malaise; K59.09 Other constipation; Z79.82 Long term (current) use of aspirin; E87.6 Hypokalemia; E83.42 Hypomagnesemia; D53.9 Nutritional anemia, unspecified; R63.4 Abnormal weight loss
CPT/HCPCS: 99231-AI; 99233-AI; 99239; A4216; G0378; J0696; J1630; J3475; J3480; J7030